=== PATIENT | female | born 1995 | race Caucasian/White ===

== ENCOUNTER 2021-04-04 11:53 | Outpatient (CLI) | payer OTHER ==
[2021-04-05 00:36] LABS: SARS-CoV-2 PCR by NAA Not Detected (NotDetected)
== END 2021-04-04 11:54 | disposition home or self-care (01) ==
LOC: CSHLAB 11:53
PROVIDERS: ATTEND Family Medicine
DX: Z01.812 Encounter for preprocedural laboratory examination (principal); Z20.822 Contact with and (suspected) exposure to COVID-19
CPT/HCPCS: U0003; U0005

== ENCOUNTER 2021-04-07 10:13 | Inpatient (IN) | payer MEDICAID, OTHER, SELFPAY ==
[2021-04-07] MEDS ORDERED: Lactated Ringer's 1,000 ML IV SCH (10:46)
[2021-04-07] MEDS ORDERED: Bicitra 30 ML UDCUP PO PRN (10:46)
[2021-04-07] MEDS ORDERED: CEFAZOLIN 2 GM in Premix Bag 1 BAG IVPB SCH (10:46)
[2021-04-07] MEDS ORDERED: Promethazine HCl 25 MG/ML VIAL IM PRN ×3 (10:46→16:57)
[2021-04-07] MEDS ORDERED: Famotidine/PF 20 mg/2ml Vial SLOW IVP PRN (10:46)
[2021-04-07] MEDS ORDERED: Acetaminophen 500 MG TAB PO PRN (10:46)
[2021-04-07] MEDS ORDERED: Ondansetron PF 4 MG/2 ML Vial IVP PRN ×3 (10:46→16:57)
[2021-04-07] MEDS ORDERED: hydrALAZINE 20 MG/ML VIAL SLOW IVP PRN ×2 (10:46→16:57)
[2021-04-07] MEDS ORDERED: Butorphanol Tartrate 1 MG/ML VIAL SLOW IVP PRN (10:46)
[2021-04-07 10:54] VITALS: BMI 28.1
[2021-04-07] MEDS ORDERED: PHENYLEPHRINE-NS 100 MCG/ML 10 ML SYRINGE ONE (11:34)
[2021-04-07] MEDS ORDERED: Ondansetron PF 4 MG/2 ML Vial ONE (11:34)
[2021-04-07] MEDS ORDERED: Dexamethasone 4 mg/ml Vial ONE (11:34)
[2021-04-07] MEDS ORDERED: Morphine PF 10 MG/10 ML VIAL ONE (11:34)
[2021-04-07] MEDS ORDERED: Phenylephrine 40 MG/NS 250 ML 250 ML ONE (11:34)
[2021-04-07] MEDS ORDERED: Oxytocin 10 UNITS/ML VIAL ONE (11:34)
[2021-04-07 11:35] LABS: Hemoglobin 11.7 g/dL (12.0-15.5); Mean Corpuscular HGB CONC 33.4 g/dL (32.0-36.0); Mean Corpuscular Volume 92.6 fl (81.6-98.3); Mean Platelet Volume 11.5 fl (7.4-10.4); Platelet Count 181 10x3/uL (150-450); RBC Distribution Width 13.2 % (11.5-14.5); Red Blood Cell (RBC) Count 3.78 10x6/uL (3.90-5.03); White Blood Cell (WBC) Count 6.9 10x3/uL (3.5-10.5)
[2021-04-07 12:18] LABS: Hep B Surf Ag Non-Reactive S/CO (NonReactive); Syphilis Antibody Nonreactive (Nonreactive); Syphilis Antibody Index 0.05 S/CO (<1.00 Non-Reactive)
[2021-04-07 12:44] LABS: HBSAg Index 0.18 S/CO (0-0.99)
[2021-04-07] MEDS ORDERED: Ketorolac Tromethamine 30 MG/ML VIAL IVP PRN (14:03)
[2021-04-07] MEDS ORDERED: Ondansetron HCl/PF 4 MG/2 ML Vial IVP PRN (14:03)
[2021-04-07] MEDS ORDERED: Meperidine HCl/PF 25 MG/ML VIAL SLOW IVP PRN (14:03)
[2021-04-07] MEDS ORDERED: diphenhydrAMINE 50 MG/ML VIAL IVP PRN (14:03)
[2021-04-07] MEDS ORDERED: Promethazine HCl 25 MG SUPP PR PRN (14:03)
[2021-04-07] MEDS ORDERED: Naloxone HCl 0.4 mg/ml Vial IVP PRN ×2 (14:03)
[2021-04-07] MEDS ORDERED: Naloxone HCl 0.4 mg/ml Vial IV PRN (14:03)
[2021-04-07] MEDS ORDERED: Fentanyl 100 MCG/2 ML VIAL SLOW IVP PRN (14:03)
[2021-04-07] MEDS ORDERED: Hydrocerin (Eucerin) Cream 120 gm Jar TOP PRN (14:03)
[2021-04-07] MEDS ORDERED: Ketorolac Tromethamine 30 MG/ML VIAL IVP SCH (14:15)
[2021-04-07] MEDS ORDERED: Communication Order-Pharmacy FS SCH (14:15)
[2021-04-07] MEDS ORDERED: NS w/ Oxytocin 30 units 500 ML ONE (15:44)
[2021-04-07] MEDS ORDERED: Simethicone Chewable 80 MG TAB PO PRN (16:57)
[2021-04-07] MEDS ORDERED: NS w/ Oxytocin 30 units 500 ML IV SCH (16:57)
[2021-04-07] MEDS ORDERED: Meperidine HCl/PF 25 MG/ML VIAL IM PRN (16:57)
[2021-04-07] MEDS ORDERED: diphenhydrAMINE 25 MG CAP PO PRN (16:57)
[2021-04-07] MEDS ORDERED: Bisacodyl 10 MG SUPP PR PRN (16:57)
[2021-04-07] MEDS: Ketorolac Tromethamine 30 MG/ML VIAL IVP SCH ×2 (18:06→23:41)
[2021-04-07] MEDS: Ferrous Sulfate 325 MG TAB PO SCH (21:08)
[2021-04-07] MEDS: Docusate Calcium (SURFAK) 240 MG CAP PO SCH (21:36)
[2021-04-08] MEDS: Ketorolac Tromethamine 30 MG/ML VIAL IVP SCH (05:33)
[2021-04-08 05:55] LABS: Hemoglobin 10.4 g/dL (12.0-15.5); Mean Corpuscular HGB CONC 34.4 g/dL (32.0-36.0); Mean Corpuscular Hemoglobin 31.7 pg (27.0-33.0); Mean Corpuscular Volume 92.1 fl (81.6-98.3); Mean Platelet Volume 11.5 fl (7.4-10.4); Platelet Count 143 10x3/uL (150-450); RBC Distribution Width 12.8 % (11.5-14.5); Red Blood Cell (RBC) Count 3.28 10x6/uL (3.90-5.03); White Blood Cell (WBC) Count 9.4 10x3/uL (3.5-10.5)
[2021-04-08] MEDS: Ferrous Sulfate 325 MG TAB PO SCH ×2 (09:01→22:24)
[2021-04-08] MEDS: Docusate Calcium (SURFAK) 240 MG CAP PO SCH ×2 (09:02→22:28)
[2021-04-08] MEDS: HYDROcodone/Acetaminophen 5/325 mg Tablet PO PRN ×3 (11:56→22:27)
[2021-04-08] MEDS ORDERED: Boostrix 0.5 ML (Tdap) VIAL IM ONE (16:57)
[2021-04-08] MEDS: Ibuprofen 800 MG TAB PO SCH (22:27)
[2021-04-09] MEDS: Ibuprofen 800 MG TAB PO SCH ×3 (05:29→21:51)
[2021-04-09] MEDS: Ferrous Sulfate 325 MG TAB PO SCH ×2 (08:26→21:51)
[2021-04-09] MEDS: Docusate Calcium (SURFAK) 240 MG CAP PO SCH ×2 (08:27→21:51)
[2021-04-09] MEDS: HYDROcodone/Acetaminophen 5/325 mg Tablet PO PRN (15:53)
[2021-04-10] MEDS: HYDROcodone/Acetaminophen 5/325 mg Tablet PO PRN ×3 (03:32→13:18)
[2021-04-10] MEDS: Ibuprofen 800 MG TAB PO SCH ×2 (06:03→13:18)
[2021-04-10 07:49] VITALS: BP 102/55; TEMP 97.5
[2021-04-10] MEDS: Docusate Calcium (SURFAK) 240 MG CAP PO SCH (08:17)
[2021-04-10] MEDS: Ferrous Sulfate 325 MG TAB PO SCH (08:56)
== END 2021-04-10 14:55 | disposition home or self-care (01) | DRG 788 ==
LOC: CSHLD 10:13 → CSHPP 15:50
PROVIDERS: ADMIT Family Medicine; ATTEND Family Medicine
PROC: 10D00Z1 Extraction of Products of Conception, Low, Open Approach (ICD-10-PCS; principal; 2021-04-08)
DX: O34.211 Maternal care for low transverse scar from previous cesarean delivery (principal); Z3A.39 39 weeks gestation of pregnancy; Z37.0 Single live birth
CPT/HCPCS: 36415; 85027; 86780; 86850; 86900; 86901; 87340; J1100; J1885; J2274; J2405; J2590